=== PATIENT | female | born 1995 | race African-American/Black ===

== ENCOUNTER 2016-05-23 22:12 | Emergency (ER) | payer SELFPAY ==
[~2016-05-23 22:12] MED LIST: ACET500C5 PO; CIPR500T4 PO; CYCL-319 PO; FERR240T9 PO; HYDR-902 PO; IBUP-1542 PO; IBUP800T25 PO; PRENAT PO
== END 2016-05-23 22:15 | disposition left against medical advice (07) ==
LOC: E/R 22:12
DX: Z53.21 Procedure and treatment not carried out due to patient leaving prior to being seen by health care provider (principal)

== ENCOUNTER 2016-05-25 20:04 | Emergency (ER) | payer SELFPAY | END 2016-05-25 22:05 | disposition left against medical advice (07) | LOC: E/R 20:04 | DX: Z53.21 Procedure and treatment not carried out due to patient leaving prior to being seen by health care provider (principal) ==

== ENCOUNTER 2016-06-01 09:53 | Emergency (ER) | payer OTHER ==
[~2016-06-01] VITALS: Wt 106.0 kg
--- NOTE | 2016-06-01 10:59 | ERD ---
ER Documentation Chief Complaint Date/Time DATE: 06/01/16 TIME: 10:58 Chief Complaint lower abdominal pain for 1 week. no dysuria. no nausea no vomiting HPI 21-year-old female history of obesity comes emergency room with lower abdominal pain that started a week ago. She describes it to be localized in the suprapubic region, intermittent described as sharp and mild to moderate pain. So far she has not tried anything for pain. She denies any fevers or chills, nausea, vomiting or diarrhea. No associated vaginal bleeding. ROS All systems reviewed and are negative except as per history of present illness. Medications Home Meds Active Scripts Tramadol HCl (Tramadol HCl) 50 Mg Tablet, 50 MG PO Q4 Y for PAIN, #20 TAB Prov:GALDINO MABRY PA-C 06/01/16 Hydrocodone/Acetaminophen ([place] 10-325 Tablet) 1 Each Tablet, 1 TAB PO Q6H Y for PAIN, #10 TAB Prov:NICHOLAS LA PA-C 03/22/16 Ibuprofen* (Motrin*) 800 Mg Tab, 800 MG PO Q6, #30 TAB Prov:NICHOLAS LA PA-C 03/22/16 Acetaminophen* (Tylophen*) 500 Mg Capsule, 2 CAP PO Q8H Y for PAIN AND OR ELEVATED TEMP, #30 CAP Prov:NICHOLAS LA PA-C 03/22/16 Ciprofloxacin Hcl* (Ciprofloxacin Hcl*) 500 Mg Tablet, 500 MG PO BID for 3 Days , TAB Prov:GALDINO MABRY PA-C 01/26/15 Ibuprofen* (Motrin*) 600 Mg Tab, 600 MG PO Q6, #20 TAB Prov:GALDINO MABRY PA-C 01/26/15 Cyclobenzaprine Hcl* (Cyclobenzaprine Hcl*) 10 Mg Tablet, 10 MG PO TID for 7 Days, TAB Prov:ANEL HERRERA PA-C 11/10/14 Ibuprofen* (Motrin*) 600 Mg Tab, 600 MG PO Q6H Y for PAIN AND OR ELEVATED TEMP, #30 Prov:ANEL HERRERA PA-C 11/10/14 Ciprofloxacin Hcl* (Ciprofloxacin Hcl*) 500 Mg Tablet, 500 MG PO BID for 3 Days , TAB Prov:GALDINO MABRY PA-C 10/11/14 Reported Medications Ferrous Gluconate (Iron) 1 Tab Tablet, 1 TAB PO DAILY 06/20/14 Multivit/Min/Fol Ac/Iron/Pren* ( S*) 1 Tab Tab, 1 TAB PO DAILY, TAB 02/03/14 Allergies Allergies: Coded Allergies: No Known Allergy (Unverified , 03/22/16) PMhx/Soc Medical and Surgical Hx: pt denies Medical Hx, pt denies Surgical Hx History of Surgery: No Anesthesia Reaction: No Hx Neurological Disorder: No Hx Respiratory Disorders: No Hx Cardiac Disorders: No Hx Psychiatric Problems: No Hx Miscellaneous Medical Probl: Yes Hx Alcohol Use: No Hx Substance Use: No Hx Tobacco Use: No Smoking Status: Never smoker Physical Exam Vitals Vital Signs Date Time Temp Pulse Resp B/P Pulse Ox O2 Delivery O2 Flow Rate FiO2 06/01/16 10:03 97.8 74 20 136/74 99 Physical Exam General: Well-developed, well-nourished. The patient appears in no acute distress. HEENT: Head is normocephalic, atraumatic. No scleral icterus. Neck: Supple. Nontender. Lungs: Clear to auscultation. Normal air movement. Heart: Regular rate and rhythm. S1 and S2 are normal. No murmurs, gallops, or rubs. Abdomen: Soft, TTP in the suprapubic region nondistended. Bowel sounds are normoactive. Extremities: No clubbing or cyanosis. Normal pulses. Moving extremities x 4. No weakness. Neurologic: Alert and oriented 3. No focal deficits. Skin: Normal turgor. No rash or lesions. Results 24 hrs Laboratory Tests Test 06/01/16 11:06 Bedside Urine Blood Negative Bedside Urine Glucose (UA) Negative Bedside Urine Ketones (LAB) Negative Bedside Urine Leukocyte Esterase (L Negative Bedside Urine Nitrite (LAB) Negative Bedside Urine Protein (LAB) Negative Bedside Urine pH (LAB) 5.5 Current Medications Medications (Trade) Dose Ordered Sig/Guerline Route PRN Reason Start Time Stop Time Status Last Admin Dose Admin Ibuprofen (Motrin) 600 mg ONCE ONCE PO 06/01/16 11:00 06/01/16 11:01 DC 06/01/16 11:03 PROCEDURE: US Pelvis CLINICAL INDICATION: pelvic pain, h/o left sided cyst TECHNIQUE: Multiple sonographic images of the pelvis were obtained utilizing a transabdominal and endovaginal technique. The images were reviewed on a PACS workstation. COMPARISON: Pelvic ultrasound from 01/25/2015 LMP: 04/19/2016 FINDINGS: The uterus measures 9.8 x 3.9 x 5.0 cm. The endometrial echo complex measures 6 mm in thickness. No discrete lesion is seen. The right ovary measures 4.0 x 2.2 x 3.1 cm. The left ovary measures 4.5 x 2.1 x 3.1 cm. There is normal vascular flow in both ovaries. In the right adnexa, there is a large cystic lesion with thick septations running through it which measures up to 11 cm. No vascular flow is noted in the septations. No significant pelvic free fluid is identified. IMPRESSION: 11 cm cystic lesion with septations in the right adnexa, as above. An MRI of the pelvis without and with intravenous contrast is recommended for further evaluation. Otherwise, unremarkable pelvic ultrasound. RPTAT: EE Physician Lorin Date Time Electronically viewed and signed by Physician Lorin on 06/01/2016 12:31 Procedures/MDM 21-year-old female is obese comes to the ER with pelvic pain for the past 2 weeks on and off. She has a history of ovarian cyst and has been diagnosed with them several times that resolved, and has been seeing an DIETARY WORKER in the past. She comes in with 11 cm ovarian cyst, I reviewed the findings and my attending physician, agrees that this patient may appropriately be followed up with her DIETARY WORKER outpatient for likely surgical evaluation. At this time there are no clinical signs or symptoms of an ovarian torsion, she is hemodynamically stable and will be discharged home. Departure Diagnosis: Primary Impression: Ovarian cyst Condition: GALDINO Pinto PA-C Jun 01, 2016 10:59
[2016-06-01] MEDS ORDERED: IBUPROFEN 600 MG TAB PO ONE (11:00)
[2016-06-01 11:04] LABS: URINE BLOOD (Dip) POC Negative (NEGATIVE)
--- NOTE | 2016-06-01 12:31 | RADRPT ---
PROCEDURE: US Pelvis CLINICAL INDICATION: pelvic pain, h/o left sided cyst TECHNIQUE: Multiple sonographic images of the pelvis were obtained utilizing a transabdominal and endovaginal technique. The images were reviewed on a PACS workstation. COMPARISON: Pelvic ultrasound from 01/25/2015 LMP: 04/19/2016 FINDINGS: The uterus measures 9.8 x 3.9 x 5.0 cm. The endometrial echo complex measures 6 mm in thickness. N o discrete lesion is seen. The right ovary measures 4.0 x 2.2 x 3.1 cm. The left ovary measures 4.5 x 2.1 x 3.1 cm. There is no rmal vascular flow in both ovaries. In the right adnexa, there is a large cystic lesion with thick septations running through it which m easures up to 11 cm. No vascular flow is noted in the septations. No significant pelvic free fluid is identified. IMPRESSION: 11 cm cystic lesion with septations in the right adnexa, as above. An MRI of the pelvis without and with intravenous contrast is recommended for further evaluation. Otherwise, unremarkable pelvic ultrasound. RPTAT: EE Physician Lorin Date Time Electronically viewed and signed by Physician Lorin on 06/01/2016 12:31 /
[2016-06-01] MEDS ORDERED: TRAM50TA2 PO (12:41)
[2016-06-01 12:45] VITALS: BP 132/74; PULSE 66; RESP 18; TEMP 97.8
== END 2016-06-01 12:45 | disposition home or self-care (01) ==
LOC: FTE 09:53
DX: N83.209 Unspecified ovarian cyst, unspecified side (principal); R10.2 Pelvic and perineal pain
CPT/HCPCS: 76856; 81003; Z7502; Z7610

== ENCOUNTER 2016-12-08 05:40 | Inpatient (IN) | payer OTHER ==
[2016-12-07 16:08] VITALS: BMI 40.2
[2016-12-08] VITALS (25 sets, daily range): BP systolic 130–171; BP diastolic 53–92; PULSE 56–86; RESP 14–22; Ht 172.7 cm; Wt 130.6 kg
[~2016-12-08] VITALS: Ht 172.7 cm; Wt 130.6 kg
[~2016-12-08 05:40] MED LIST changes: +AZIT250T6 PO; +FERR325C PO; +FLUT50DI INH; +IRON PO; +TRAM50TA2 PO; +[UNRECOGNIZED DRUG - CODE] PO
--- NOTE | 2016-12-08 06:28 | PREOPHP ---
DATE OF ADMISSION: 12/08/2016 HISTORY OF PRESENT ILLNESS: This is a 21-year-old lady, 1, para 1. Her last normal menstrual period was a few days prior to admission. She was admitted for exploratory laparotomy, ovarian cystectomy, possible oophorectomy, and frozen section. The patient is known to have a possible left ovarian cyst measuring about a 11 cm. She is having on and off lower abdominal pain. She also bleeds very heavily with her period. Ultrasound showed a possible left ovarian cyst and the MRI showed a cystic mass on the midportion of the lower abdomen. PAST OB HISTORY: She is 1, para 1. Her 1st delivery was in 2014, normal delivery. She had menarche at the age of 10, having irregular periods. REVIEW OF SYSTEMS: CARDIOVASCULAR: No chest pain. LUNGS: No cough. GASTROINTESTINAL: No diarrhea, no vomiting. GENITOURINARY: No dysuria. PHYSICAL EXAMINATION: GENERAL APPEARANCE: Reveals a conscious, coherent lady, in no acute distress. VITAL SIGNS: Her blood pressure is 120/80, pulse rate 80 per minute, respirations 16 per minute. BREASTS: Within normal limits. HEART: Within normal limits. LUNGS: Within normal limits. ABDOMEN: Soft. No organomegaly and obese. PELVIC: Revealed the cervix to be firm and pelvic mass noted in the midportion of the abdomen about 11 cm. RECTAL: Rectal exam confirmed the pelvic findings. EXTREMITIES: No pedal edema. ADMITTING DIAGNOSIS: Possible left ovarian cyst. Rule out hydrosalpinx. Patient was planned to have the above procedure. Dictated By: Yoly Cantu MD /[email or web address] /Document#: [id number] ; copy to [facility]
[2016-12-08] MEDS ORDERED: PROPOFOL 20 ML ONE (07:33)
[2016-12-08] MEDS ORDERED: MIDAZOLAM 1 MG/ML 2 ML INJ ONE (07:33)
[2016-12-08] MEDS ORDERED: ROCURONIUM 50 MG INJ ONE (07:33)
[2016-12-08] MEDS ORDERED: METOCLOPRAMIDE 10 MG INJ ONE (07:33)
[2016-12-08] MEDS ORDERED: morphine SULFATE/PF (10 MG/10 ML) INJ ONE (07:34)
[2016-12-08] MEDS ORDERED: HYDROmorphONE 2 MG/ML SYG ONE (11:16)
[2016-12-08] MEDS ORDERED: METOCLOPRAMIDE 10 MG INJ IV PRN (11:30)
[2016-12-08] MEDS ORDERED: NALOXONE (0.4 MG/ML) INJ IV PRN (11:30)
[2016-12-08] MEDS ORDERED: HYDROmorphONE (0.2 MG/ML) 10ML SYG IV PRN ×2 (11:30)
[2016-12-08] MEDS ORDERED: ONDANSETRON 4 MG INJ IV PRN ×2 (11:30)
[2016-12-08] MEDS ORDERED: HYDROmorphONE 1 MG/ML SYG IV PRN ×3 (11:30)
[2016-12-08] MEDS ORDERED: LABETALOL HCL 20MG INJ IV PRN (11:30)
[2016-12-08] MEDS ORDERED: OXYCODONE/ACETAMINOPHEN (5/325) TAB PO PRN ×2 (11:30)
[2016-12-08] MEDS ORDERED: MEPERIDINE 25 MG INJ IV PRN (11:30)
[2016-12-08] MEDS ORDERED: DIPHENHYDRAMINE 50 MG INJ IV PRN ×2 (11:30)
[2016-12-08] MEDS ORDERED: KETOROLAC 30 MG INJ ONE (11:52)
[2016-12-08] MEDS ORDERED: ONDANSETRON 4 MG INJ ONE (12:11)
[2016-12-08] MEDS ORDERED: NEOSTIGMINE 3 MG/3 ML SYRINGE ONE (12:30)
[2016-12-08] MEDS ORDERED: GLYCOPYRROLATE 0.4 MG INJ ONE (12:30)
--- NOTE | 2016-12-08 12:55 | OPR ---
Date/Time of Note Date/Time of Note DATE: 12/08/16 TIME: 12:49 Operative Report Preoperative Diagnosis LEFT OVARIAN CYST PELVIC PAIN Postoperative Diagnosis LEFT PARATUBAL CYST RIGHT PARATUBAL CYST OBESITY PCO Operation/Procedure Performed EXPLORATORY LAPAROTOMY LEFT PARATUBAL CYST DRAINAGE OF LEFT PARATUBAL CYST DRAINAGE OF RIGHT PARATUBAL CYST DRILLING OF BOTH OVARIES Surgeon: STACI HERNANDES MD Anesthesia Type: general, MAC, spinal (AND GENERAL), other Estimated Blood Loss: 50 - 100 ml's Transfusion Required: no Specimens LEFT PARATUBAL CYST Grafts/Implants: none Complications: no STACI HERNANDES MD Dec 08, 2016 12:55
[2016-12-08] MEDS: HYDROmorphONE (0.2 MG/ML) 10ML SYG IV PRN ×2 (13:09→13:20)
[2016-12-08] MEDS: HYDROmorphONE 0.2 MG/ML PCA IV SCH (13:19)
[2016-12-08] MEDS ORDERED: ONDANSETRON 4 MG TAB PO PRN (13:30)
[2016-12-08] MEDS: LACTATED RINGER'S 1,000 ML IV SCH (18:17)
[2016-12-09] MEDS: LACTATED RINGER'S 1,000 ML IV SCH ×4 (00:33→22:21)
[2016-12-09 03:04] VITALS: BP 129/66; RESP 18
[2016-12-09] MEDS: HYDROmorphONE 0.2 MG/ML PCA IV SCH (04:58)
[2016-12-09 05:38] LABS: ABNORMAL IP MESSAGE 1; BASOPHILS % 0.2 % (0.0-2.0); EOSINOPHILS # 0.1 10^3/ul (0.0-0.5); EOSINOPHILS % 0.8 % (0.0-7.0); HEMATOCRIT 31.3 % (37.0-47.0); HEMOGLOBIN 8.6 g/dl (12.0-16.0); LYMPHOCYTES # 2.5 10^3/ul (0.8-2.9); LYMPHOCYTES % 24.4 % (15.0-51.0); MEAN CORPUSCULAR HEMOGLOBIN 18.9 pg (29.0-33.0); MEAN CORPUSCULAR HGB CONC 27.5 g/dl (32.0-37.0); MEAN CORPUSCULAR VOLUME 68.8 fl (82.0-101.0); MONOCYTE # 0.7 10^3/ul (0.3-0.9); MONOCYTES % 7.3 % (0.0-11.0); NEUTROPHILS % 66.9 % (39.0-77.0); PLATELET COUNT 299 10^3/UL (140-415); RED BLOOD COUNT 4.55 10^6/ul (4.20-5.40); RED CELL DISTRIBUTION WIDTH 19.1 % (11.5-14.5); WHITE BLOOD COUNT 10.2 10^3/ul (4.8-10.8)
[2016-12-09 05:46] LABS: ALBUMIN 3.6 g/dl (3.3-4.9); ALBUMIN/GLOBULIN RATIO 1.24; BILIRUBIN,INDIRECT 0.3 mg/dl (0-1.1); BILIRUBIN,TOTAL 0.3 mg/dl (0.2-1.3); CREATININE 0.61 mg/dl (0.44-1.00); POTASSIUM 4.5 mmol/L (3.5-5.1); TOTAL PROTEIN 6.5 g/dl (6.1-8.1)
[2016-12-09] MEDS ORDERED: BISACODYL 10 MG SUPP PR ONE ×3 (06:00→23:00)
[2016-12-09] MEDS: MAGNESIUM HYDROXIDE 30ML CUP PO SCH ×2 (06:00→17:20)
[2016-12-09 06:03] LABS: POSITIVE DIFF @See below
--- NOTE | 2016-12-09 06:32 | OPR ---
DATE OF OPERATION: 12/08/2016 PREOPERATIVE DIAGNOSES: 1. Left paratubal cyst. 2. Chronic pelvic pain. 3. Obesity. POSTOPERATIVE DIAGNOSES: 1. Left paratubal cyst. 2. Chronic pelvic pain. 3. Obesity. 4. Right paratubal cyst. 5. Polycystic ovaries. SURGEON: Dr. Cantu. VP [employer]: Larissa perez. ANESTHESIA: General. OPERATION PERFORMED: Exploratory laparotomy, left paratubal cystectomy, drainage of the right paratubal cyst and drilling of both ovaries. OPERATIVE PROCEDURE: Under general anesthesia, the patient was prepped and draped in the usual fashion for abdominal surgery. After checking for the effect of the anesthesia, a Pfannenstiel incision, 10 cm skin incision was performed. The incision was carried from the skin up to the fascia. Upon opening the skin to the fascia, small blood vessels were noted to be oozing and these were all cauterized. The fascia was opened transversely followed by splitting the muscles vertical and the peritoneum vertically. Upon opening the abdominal cavity, the left tube and ovary were pulled out from the pelvic cavity. Prior to that, the muscles on both sides of the lower abdomen were cut transversely. Then the left tube and the left ovary were pulled out. The left tube was measuring about 12 x 12 cm and there was noted to be a paratubal cyst. An incision was performed on the serosa of the cyst and the cyst was enucleated from the paratubal ligament by sharp and blunt dissection. It was delivered intact and the remaining serosa of the tube was sutured with continuous sutures with 2-0 chromic. Bleeders were checked and there was no bleeding noted. The tube was noted to be intact after suturing of the serosa. The left ovary was noted to have tiny small follicles and drilling of the left ovary was done and then the same thing was noted on the right side. A 3 x 3 cm paratubal cyst was noted and this was drained. The right tube was healthy looking. The ovary also had polycystic ovaries, so drilling of the right ovary was done. Bleeders were checked and there was no bleeding noted. The uterus was noted to be of normal size. Irrigation with about 200 cc of normal saline was done. After correct sponge count, needle count, and instrument count was confirmed by the field sampling technician and manager fine, the abdomen was closed by closing the peritoneum and the muscles first on the right side and followed by closing the peritoneum and the muscle on the left side. Then the peritoneum was closed in the usual fashion using 0 Vicryl for the peritoneum, 0 Vicryl for the muscles. For the fascia 0 Vicryl continuous stitch was used followed by a few figure-of- eight sutures. For the subcutaneous tissue, it was closed with 3- 0 Vicryl in 2 layers and the skin was closed with 3-0 Vicryl subcuticular suture. The patient tolerated the procedure well. ESTIMATED BLOOD LOSS: About 100 cc. Vital signs were stable during and after the procedure. Dictated By: Yoly Cantu MD /[email or web address] /Document#: [id number] CC: Yoly Cantu MD;*EndCC*
[2016-12-09 08:00] VITALS: BP 131/71; RESP 18
--- NOTE | 2016-12-09 13:14 | PN ---
Date/Time of Note Date/Time of Note DATE: 12/09/16 TIME: 13:09 Assessment/Plan VTE Prophylaxis VTE Prophylaxis Intervention: ambulation Lines/Catheters IV Catheter Type (from Nrsg): Peripheral IV Urinary Cath still in place: Yes Subjective 24 Hr Interval Summary Free Text/Dictation Anesthesia note: A 21 year female s/p exp lap paratubal cystectomy under GA, Spinal pod # 1 is doing fine, pain is controlled, no headahe, N/V, itching, back apin, no deficit. care per surgery Exam/Review of Systems Vital Signs Vitals Vital Signs Date Time Temp Pulse Resp B/P Pulse Ox O2 Delivery O2 Flow Rate FiO2 12/09/16 08:00 98.3 92 18 131/71 97 12/08/16 17:45 Room Air 12/08/16 13:19 10.0 Intake and Output 12/08/16 12/08/16 12/09/16 15:00 23:00 07:00 Intake Total 1500 ml 1140 ml Output Total 250 ml 400 ml 1100 ml Balance 1250 ml -400 ml 40 ml Results Result Diagram: 12/09/16 0438 12/09/16 0438 Results 24 hrs Laboratory Tests Test 12/09/16 02:20 12/09/16 04:38 Bedside Glucose 104 White Blood Count 10.2 # Red Blood Count 4.55 Hemoglobin 8.6 L Hematocrit 31.3 L Mean Corpuscular Volume 68.8 L Mean Corpuscular Hemoglobin 18.9 L Mean Corpuscular Hemoglobin Concent 27.5 L Red Cell Distribution Width 19.1 H Platelet Count 299 Mean Platelet Volume Neutrophils % 66.9 Lymphocytes % 24.4 Monocytes % 7.3 Eosinophils % 0.8 Basophils % 0.2 Nucleated Red Blood Cells % 0.0 Neutrophils # (Manual) 6.8 Lymphocytes # 2.5 Monocytes # 0.7 Eosinophils # 0.1 Basophils # 0.0 Nucleated Red Blood Cells # 0.0 Sodium Level 136 Potassium Level 4.5 Chloride Level 100 Carbon Dioxide Level 28 Anion Gap 13 Blood Urea Nitrogen 6 L Creatinine 0.61 Glucose Level 99 Calcium Level 9.0 Total Bilirubin 0.3 Direct Bilirubin 0.00 Indirect Bilirubin 0.3 Aspartate Amino Transf (AST/SGOT) 25 Alanine Aminotransferase (ALT/SGPT) 41 Alkaline Phosphatase 99 Total Protein 6.5 Albumin 3.6 Globulin 2.90 Albumin/Globulin Ratio 1.24 Medications Medications Current Medications Naloxone HCl (Narcan) 0.2 mg PRN PRN IV DECREASED REPIRATORY RATE; Start at 11:30 Hydromorphone HCl (Dilaudid MANA[employer]) 0.2 mg Q4PCA IV Last administered on t 04:58; Admin Dose 0.2 MG; Start 12/08/16 at 11:30 Oxycodone/ Acetaminophen (Percocet (5/ 325)) 1 tab Q4H PRN PO PAIN LEVEL 1-5; Start 12/08/16 at 11:30 Oxycodone/ Acetaminophen (Percocet (5/ 325)) 2 tab Q4H PRN PO PAIN LEVEL 6-10; Start 12/08/16 at 11:30 Hydromorphone HCl (Dilaudid) 1 mg Q3 PRN IV BREAKTHROUGH PAIN; Start 12/08/16 at 11:30 Hydromorphone HCl (Dilaudid) 0.2 mg Q4H PRN IV PAIN LEVEL 1-5; Start 12/08/16 at 11:30 Hydromorphone HCl (Dilaudid) 0.4 mg Q4H PRN IV PAIN LEVEL 6-10; Start 12/08/16 at 11:30 Ketorolac Tromethamine (Toradol) 30 mg Q6H PRN IV PAIN UNRELIEVED BY IV NARCOTIC; Start 12/08/16 at 11:30; Stop 12/11/16 at 11:29 Ondansetron HCl (Zofran Inj) 4 mg Q6H PRN IV NAUSEA AND/OR VOMITING; Start at 11:30 Diphenhydramine HCl (Benadryl) 25 mg Q6H PRN IV ITCHING; Start 12/08/16 at 11: 30 Bisacodyl (Dulcolax Supp) 10 mg ONCE ONCE MN ; Start 12/09/16 at 17:00; Stop at 17:01 Magnesium Hydroxide (Milk Of Mag) 30 ml BID@06,17 PO ; Start 12/09/16 at 06:00 Ondansetron HCl (Zofran Tab) 4 mg Q6H PRN PO NAUSEA AND/OR VOMITING; Start at 13:30 Oxycodone/ Acetaminophen (Percocet (5/ 325)) 1 tab Q3H PRN PO PAIN LEVEL 1-5; Start 12/09/16 at 13:30 Oxycodone/ Acetaminophen 2 tab 2 tab Q3H PRN PO SEVERE PAIN LEVEL 7-10; Start 12/09/16 at 13:30 Lactated Ringer's (Lr) 1,000 ml @ 100 mls/hr Q10H IV Last administered on 12/09t 10:50; Admin Dose 100 MLS/HR; Start 12/08/16 at 17:00 SUSAN KELLOGG MD Dec 09, 2016 13:14
[2016-12-09] MEDS ORDERED: OXYCODONE/ACETAMINOPHEN (5/325) TAB PO PRN ×2 (13:30)
[2016-12-09 14:00] VITALS: BP 126/68; RESP 18
[2016-12-09] MEDS: OXYCODONE/ACETAMINOPHEN (5/325) TAB PO PRN (20:01)
[2016-12-09 21:01] VITALS: BP 114/58; RESP 20
[2016-12-09] MEDS ORDERED: MAGNESIUM HYDROXIDE 30ML CUP PO ONE (23:00)
[2016-12-10] MEDS: OXYCODONE/ACETAMINOPHEN (5/325) TAB PO PRN ×4 (01:02→16:47)
[2016-12-10 03:14] VITALS: BP 134/65; RESP 22
[2016-12-10 05:23] LABS: ABNORMAL IP MESSAGE 1; BASOPHILS % 0.3 % (0.0-2.0); EOSINOPHILS # 0.1 10^3/ul (0.0-0.5); EOSINOPHILS % 0.9 % (0.0-7.0); HEMATOCRIT 32.6 % (37.0-47.0); HEMOGLOBIN 9.1 g/dl (12.0-16.0); LYMPHOCYTES # 2.8 10^3/ul (0.8-2.9); LYMPHOCYTES % 24.7 % (15.0-51.0); MEAN CORPUSCULAR HEMOGLOBIN 19.4 pg (29.0-33.0); MEAN CORPUSCULAR HGB CONC 27.9 g/dl (32.0-37.0); MEAN CORPUSCULAR VOLUME 69.4 fl (82.0-101.0); MONOCYTES % 9.1 % (0.0-11.0); NEUTROPHILS % 64.6 % (39.0-77.0); PLATELET COUNT 336 10^3/UL (140-415); WHITE BLOOD COUNT 11.4 10^3/ul (4.8-10.8)
[2016-12-10 05:52] LABS: POSITIVE DIFF @See below
[2016-12-10] MEDS ORDERED: BISACODYL 10 MG SUPP PR ONE ×2 (06:00→09:30)
[2016-12-10] MEDS: MAGNESIUM HYDROXIDE 30ML CUP PO SCH ×2 (06:21→16:48)
[2016-12-10] MEDS: LACTATED RINGER'S 1,000 ML IV SCH ×3 (07:36→19:00)
[2016-12-10 08:23] VITALS: BP 132/79; RESP 20
[2016-12-10] MEDS ORDERED: BISACODYL (EC) 5 MG TAB PO ONE (09:30)
[2016-12-10] MEDS ORDERED: GUAIFENESIN/DM 5ML CUP PO PRN (09:30)
[2016-12-10 15:11] VITALS: BP 121/74; RESP 18
[2016-12-10 20:44] VITALS: BP 133/73; RESP 20
[2016-12-10] MEDS: KETOROLAC 30 MG INJ IV PRN (22:14)
[2016-12-11 02:47] VITALS: BP 128/69; RESP 20
[2016-12-11] MEDS: LACTATED RINGER'S 1,000 ML IV SCH ×2 (05:00→15:00)
[2016-12-11] MEDS: MAGNESIUM HYDROXIDE 30ML CUP PO SCH ×2 (05:17→16:23)
[2016-12-11] MEDS: KETOROLAC 30 MG INJ IV PRN (05:20)
[2016-12-11 07:47] VITALS: BP 112/77; RESP 18
[2016-12-11] MEDS: OXYCODONE/ACETAMINOPHEN (5/325) TAB PO PRN ×4 (11:11→23:35)
[2016-12-11 14:00] VITALS: BP 120/80; RESP 18
[2016-12-11 19:46] VITALS: BP 128/68; RESP 22
[2016-12-12] MEDS: LACTATED RINGER'S 1,000 ML IV SCH ×3 (01:00→21:00)
[2016-12-12 02:38] VITALS: BP 109/59; RESP 22
[2016-12-12] MEDS: MAGNESIUM HYDROXIDE 30ML CUP PO SCH ×2 (06:00→18:43)
[2016-12-12] MEDS: OXYCODONE/ACETAMINOPHEN (5/325) TAB PO PRN ×2 (06:15→20:28)
[2016-12-12 07:56] VITALS: BP 134/81; RESP 18
[2016-12-12 14:00] VITALS: BP 118/68; RESP 19
[2016-12-12 20:00] VITALS: BP 134/82; RESP 20
[2016-12-13 01:55] VITALS: BP 123/58; RESP 19
[2016-12-13] MEDS: MAGNESIUM HYDROXIDE 30ML CUP PO SCH ×2 (06:08→17:00)
[2016-12-13] MEDS: OXYCODONE/ACETAMINOPHEN (5/325) TAB PO PRN ×2 (06:08→14:16)
[2016-12-13] MEDS: LACTATED RINGER'S 1,000 ML IV SCH ×2 (07:00→17:00)
[2016-12-13 08:27] VITALS: BP 114/64; RESP 16
[2016-12-13 15:36] VITALS: BP 135/85; RESP 17
[2016-12-13 17:42] VITALS: BP 126/84; PULSE 67; RESP 16
[2016-12-13 20:15] VITALS: BP 139/91; RESP 16
--- NOTE | 2016-12-29 06:14 | DS ---
DATE OF ADMISSION: 12/08/2016 DATE OF DISCHARGE: 12/13/2016 REASON FOR ADMISSION: This is a 21-year-old lady, 1. Her last normal menstrual period was a few days prior to admission. She was admitted for exploratory laparotomy, ovarian cystectomy, possible oophorectomy, frozen section. HISTORY OF PRESENT ILLNESS: See dictated history and physical. PHYSICAL EXAMINATION: See dictated history and physical. ADMITTING DIAGNOSES: 1. Possible left ovarian cyst. 2. Possible hydrosalphinx. PROCEDURE: Patient underwent an exploratory laparotomy, left paratubal cystectomy, right paratubal cyst and draining of both ovaries. POSTOPERATIVE DIAGNOSES: 1. Left paratubal cyst. 2. Chronic pelvic pain. 3. Obesity. 4. Right paratubal cyst. 5. Polycystic ovaries. HOSPITAL COURSE: She tolerated the procedure well. She did a good postoperative course. The diet was advanced from liquid to general diet. She was discharged home in good stable condition on general diet, and the activity was restricted. She was given prescription for pain. She was told to come back to the clinic in 2 weeks. She was counseled. She was instructed. She was discharged home in good stable condition. FINAL DIAGNOSIS: Benign serous cystadenoma of the ovary, left. Dictated By: Yoly Cantu MD /humza/lj /Document#: [id number] LISA
== END 2016-12-13 21:00 | disposition home or self-care (01) | DRG 742 ==
LOC: REC 05:40 → EDSTATUS 07:30 → MS1 14:03
PROVIDERS: ADMIT Obstetrics & Gynecology; ATTEND Obstetrics & Gynecology
PROC: 0UB70ZZ Excision of Bilateral Fallopian Tubes, Open Approach (ICD-10-PCS; 2016-12-08)
PROC: 0WJJ0ZZ Inspection of Pelvic Cavity, Open Approach (ICD-10-PCS; 2016-12-08)
PROC: 0UB20ZZ Excision of Bilateral Ovaries, Open Approach (ICD-10-PCS; principal; 2016-12-08 07:30)
DX: N83.8 Other noninflammatory disorders of ovary, fallopian tube and broad ligament (principal); Z68.41 Body mass index [BMI] 40.0-44.9, adult; N83.201 Unspecified ovarian cyst, right side; N83.202 Unspecified ovarian cyst, left side; E66.01 Morbid (severe) obesity due to excess calories; R10.2 Pelvic and perineal pain
CPT/HCPCS: 80053; 82962; 84702; 84703; 85025; 86850; 86900; 86901; 87086; 88304; J1170; J1885; J2175; J2250; J2274; J2405; J2710; J2765; J7120

== ENCOUNTER 2016-12-20 16:08 | Emergency (ER) | payer OTHER ==
[~2016-12-20] VITALS: Ht 152.4 cm; Wt 120.5 kg
[~2016-12-20 16:08] MED LIST changes: -ACET500C5 PO; -AZIT250T6 PO; -CIPR500T4 PO; -CYCL-319 PO; -FERR325C PO; -FLUT50DI INH; -HYDR-902 PO; -IBUP-1542 PO; -IBUP800T25 PO; -IRON PO; -PRENAT PO; -TRAM50TA2 PO; -[UNRECOGNIZED DRUG - CODE] PO
[2016-12-20 16:13] VITALS: Ht 152.4 cm; Wt 120.5 kg
[2016-12-20] MEDS ORDERED: ONDANSETRON 4 MG INJ IV STA (17:22)
[2016-12-20] MEDS ORDERED: morphine 4 MG/ML VIAL IV STA (17:22)
[2016-12-20] MEDS ORDERED: SOD CHLORIDE 0.9% 1,000 ML IV STA (17:22)
[2016-12-20] MEDS ORDERED: KETOROLAC 30 MG INJ IV STA (17:22)
[2016-12-20 17:48] LABS: ABNORMAL IP MESSAGE 1; BASOPHIL # 0.1 10^3/ul (0.0-0.1); BASOPHILS % 0.5 % (0.0-2.0); EOSINOPHILS # 0.3 10^3/ul (0.0-0.5); EOSINOPHILS % 3.5 % (0.0-7.0); HEMATOCRIT 33.7 % (37.0-47.0); HEMOGLOBIN 9.5 g/dl (12.0-16.0); LYMPHOCYTES % 32.5 % (15.0-51.0); MEAN CORPUSCULAR HEMOGLOBIN 19.6 pg (29.0-33.0); MEAN CORPUSCULAR HGB CONC 28.2 g/dl (32.0-37.0); MEAN CORPUSCULAR VOLUME 69.5 fl (82.0-101.0); MONOCYTE # 0.7 10^3/ul (0.3-0.9); MONOCYTES % 7.8 % (0.0-11.0); NEUTROPHILS % 55.3 % (39.0-77.0); PLATELET COUNT 545 10^3/UL (140-415); RED BLOOD COUNT 4.85 10^6/ul (4.20-5.40); RED CELL DISTRIBUTION WIDTH 18.5 % (11.5-14.5); WHITE BLOOD COUNT 9.3 10^3/ul (4.8-10.8)
[2016-12-20 17:57] LABS: MEAN PLATELET VOLUME 11.6 fl (7.4-10.4); POSITIVE DIFF @See below
[2016-12-20 17:58] LABS: ADD UMIC YES; UR ASCORBIC ACID 40 mg/dL (NEGATIVE); UR BACTERIA FEW /HPF (NONE SEEN); UR BILIRUBIN (Dip) NEGATIVE (NEGATIVE); UR BLOOD (Dip) NEGATIVE (NEGATIVE); UR CLARITY SLIGHTLY CLOUDY (CLEAR); UR COLOR YELLOW (YELLOW); UR GLUCOSE (Dip) NEGATIVE (NEGATIVE); UR KETONES (Dip) NEGATIVE (NEGATIVE); UR LEUKOCYTE ESTERASE (Dip) 1+ Leu/ul (NEGATIVE); UR MUCUS FEW /HPF (NONE SEEN); UR NITRITE (Dip) NEGATIVE (NEGATIVE); UR RBC 1 /HPF (0-5); UR SPECIFIC GRAVITY (Dip) 1.028 (1.003-1.030); UR SQUAMOUS EPITHELIAL CELL FEW /HPF (FEW); UR TOTAL PROTEIN (Dip) NEGATIVE (NEGATIVE); UR UROBILINOGEN (Dip) NEGATIVE (NEGATIVE)
[2016-12-20 18:03] LABS: INR 1.02; PROTIME 13.4 Sec (12.2-14.2)
[2016-12-20 18:04] LABS: PARTIAL THROMBOPLASTIN TIME 31.8 Sec (25.0-35.0)
[2016-12-20 18:06] LABS: ALBUMIN/GLOBULIN RATIO 0.95
[2016-12-20 18:09] LABS: CALCIUM 9.2 mg/dl (8.4-10.2); CREATININE 0.68 mg/dl (0.44-1.00); POTASSIUM 3.8 mmol/L (3.5-5.1)
[2016-12-20 18:10] LABS: ALBUMIN 4.3 g/dl (3.3-4.9); TOTAL PROTEIN 8.8 g/dl (6.1-8.1)
--- NOTE | 2016-12-20 20:23 | RADRPT ---
PROCEDURE: CT abdomen and pelvis without intravenous contrast. CLINICAL INDICATION: Pain. TECHNIQUE: CT of the abdomen/pelvis was performed utilizing axial images with reconstructions in s agittal and coronal planes. The administered radiation dose is CTDI 23 mGy, DLP 1568 mGy-cm. COMPARISON: No pertinent prior examinations were submitted for comparison. FINDINGS: Visualized Chest: The visualized lung bases are clear. Abdomen: The pancreas, gallbladder,and adrenal glands are unremarkable. The liver is diffusely decreased in attenuation, compatible with hepatic steatosis. There is moderate splenomegaly. The kidneys are without hydronephrosis. No definite urinary calculi are seen. There is no evidence of bowel obstruction. The appendix is normal. No intra-abdominal free air is seen. There is no evidence of intra-abdominal adenopathy or free fluid. Pelvis: A recent low anterior abdominal resection is noted. A small collection of gas and fluid are noted w ithin the rectus sheath at the site of the incision. This measures 7.3 cm in transverse dimension a nd up to 3 cm in thickness. There is some mild surrounding inflammatory changes. There is no evidence of pelvic adenopathy. The uterus and ovaries are without enlargement. The uri nary bladder is unremarkable. There is no pelvic free fluid. Osseous structures: Unremarkable. IMPRESSION: Status post recent low anterior abdominal resection with a small collection of gas and fluid within the rectus sheath at the incision. There may be infection within the fluid. The amount of fluid is likely greater than expected given the healed appearance of the overlying subcutaneous fat but may b e within normal limits with the surgery was actually more recent. Hepatic steatosis. Moderate splenomegaly. RPTAT: HIKT .Timmy Mcgowan MD, Date Time Electronically viewed and signed by .Timmy Mcgowan MD, MD on 12/20/2016 20:22 .T/
[2016-12-20] MEDS ORDERED: FER325 PO (20:41)
[2016-12-20] MEDS ORDERED: CEPH-443 PO (20:41)
[2016-12-20] MEDS ORDERED: DOCU-144 PO (20:42)
[2016-12-20 21:00] VITALS: BP 118/79; PULSE 73; RESP 18; TEMP 98.2
--- NOTE | 2016-12-20 22:07 | ERD ---
ER Documentation Chief Complaint Date/Time DATE: 12/20/16 TIME: 22:01 Chief Complaint HAD CYST REMOVED 12/08 TODAY HAS PAIN RIGTH SIDED AP HPI This patient is a 21-year-old female presenting to the emergency department with complaints of right lower quadrant pain for 1 day. Pain is nonradiating but worsening. Symptoms are constant and she rates an 8 out of 10 on the pain scale. Worse with standing. She last took pain medications of unknown name that she had left over from her recent surgical procedure. Associated symptoms include chills. She had an ovarian left-sided cyst removed approximately 2 weeks ago. She denies other symptoms at this time. ROS All systems reviewed and are negative except as per history of present illness. Medications Home Meds Active Scripts Docusate Sodium* (Colace*) 100 Mg Capsule, 100 MG PO TID, #30 CAP Prov:LB CHRISTOPHER PA-C 12/20/16 Ferrous Sulfate* (Ferrous Sulfate*) 325 Mg Tabec, 325 MG PO TID, #60 TAB Prov:LB CHRISTOPHER PA-C 12/20/16 Cephalexin* (Keflex*) 500 Mg Capsule, 500 MG PO TID for 7 Days, #21 CAP Prov:LB CHRISTOPHER PA-C 12/20/16 Reported Medications Ferrous Gluconate (Iron) 1 Tab Tablet, 1 TAB PO DAILY 06/20/14 Allergies Allergies: Coded Allergies: No Known Allergy (Unverified , 12/08/16) PMhx/Soc History of Surgery: Yes (12/08: L ovarian cyst removal) Anesthesia Reaction: No Hx Neurological Disorder: No Hx Respiratory Disorders: No Hx Cardiac Disorders: No Hx Psychiatric Problems: No Hx Miscellaneous Medical Probl: No Hx Alcohol Use: No Hx Substance Use: No Hx Tobacco Use: No Smoking Status: Never smoker Physical Exam Vitals Vital Signs Date Time Temp Pulse Resp B/P Pulse Ox O2 Delivery O2 Flow Rate FiO2 12/20/16 21:00 98.2 73 18 118/79 100 Room Air 12/20/16 16:13 99.0 90 18 129/78 99 Physical Exam Const: Morbidly obese female in no acute distress. Head: Atraumatic Eyes: Normal Conjunctiva ENT: Normal External Ears, Nose and Mouth. Neck: Full range of motion..~ No meningismus. Resp: Clear to auscultation bilaterally Cardio: Regular rate and rhythm, no murmurs Abd: obese, Soft, Mild tenderness palpation of the right lower quadrant but no rebound tenderness or guarding, non distended. Normal bowel sounds Skin: abdominal incision site just inferior to umbilicus healing well without discharge. Back: No midline or flank tenderness Ext: No cyanosis, or edema Neur: Awake and alert Psych: Normal Mood and Affect Result Diagram: 12/20/16 1730 12/20/16 1730 Results 24 hrs Laboratory Tests Test 12/20/16 17:30 White Blood Count 9.310^3/ul Red Blood Count 4.8510^6/ul Hemoglobin 9.5g/dl Hematocrit 33.7% Mean Corpuscular Volume 69.5fl Mean Corpuscular Hemoglobin 19.6pg Mean Corpuscular Hemoglobin Concent 28.2g/dl Red Cell Distribution Width 18.5% Platelet Count 81667^3/UL Mean Platelet Volume 11.6fl Neutrophils % 55.3% Lymphocytes % 32.5% Monocytes % 7.8% Eosinophils % 3.5% Basophils % 0.5% Nucleated Red Blood Cells % 0.0/100WBC Neutrophils # (Manual) 5.110^3/ul Lymphocytes # 3.010^3/ul Monocytes # 0.710^3/ul Eosinophils # 0.310^3/ul Basophils # 0.110^3/ul Nucleated Red Blood Cells # 0.010^3/ul Prothrombin Time 13.4Sec Prothrombin Time Ratio 1.0 INR International Normalized Ratio 1.02 Activated Partial Thromboplast Time 31.8Sec Urine Color YELLOW Urine Clarity SLIGHTLY CLOUDY Urine pH 6.0 Urine Specific [place] 1.028 Urine Ketones NEGATIVEmg/dL Urine Nitrite NEGATIVEmg/dL Urine Bilirubin NEGATIVEmg/dL Urine Urobilinogen NEGATIVEmg/dL Urine Leukocyte Esterase 1+[place]/ul Urine Microscopic RBC 1/HPF Urine Microscopic WBC 4/HPF Urine Squamous Epithelial Cells FEW/HPF Urine Bacteria FEW/HPF Urine Mucus FEW/HPF Urine Hemoglobin NEGATIVEmg/dL Urine Glucose NEGATIVEmg/dL Urine Total Protein NEGATIVEmg/dl Sodium Level 147mmol/L Potassium Level 3.8mmol/L Chloride Level 102mmol/L Carbon Dioxide Level 28mmol/L Anion Gap 21 Blood Urea Nitrogen 9mg/dl Creatinine 0.68mg/dl Glucose Level 90mg/dl Calcium Level 9.2mg/dl Total Bilirubin 0.0mg/dl Direct Bilirubin 0.00mg/dl Indirect Bilirubin 0.0mg/dl Aspartate Amino Transf (AST/SGOT) 23IU/L Alanine Aminotransferase (ALT/SGPT) 40IU/L Alkaline Phosphatase 102IU/L Total Protein 8.8g/dl Albumin 4.3g/dl Globulin 4.50g/dl Albumin/Globulin Ratio 0.95 Lipase 261U/L Current Medications Medications (Trade) Dose Ordered Sig/Guerline Route PRN Reason Start Time Stop Time Status Last Admin Dose Admin Sodium Chloride (NS) 1,000 ml @ 1,000 mls/hr Q1H STAT IV 12/20/16 17:22 12/20/16 18:21 DC 12/20/16 17:44 Morphine Sulfate (morphine) 4 mg ONCE STAT IV 12/20/16 17:22 12/20/16 17:24 DC 12/20/16 17:43 Ondansetron HCl (Zofran Inj) 4 mg ONCE STAT IV 12/20/16 17:22 12/20/16 17:24 DC 12/20/16 17:43 Ketorolac Tromethamine (Toradol) 30 mg ONCE STAT IV 12/20/16 17:22 12/20/16 17:24 DC 12/20/16 17:43 Procedures/MDM EMERGENCY DEPARTMENT COURSE / MEDICAL DECISION MAKING: This is a 21-year-old female who comes to the emergency room secondary to complaints of right lower quadrant pain. The patient was given IV morphine and IV Zofran and IV fluids in the department. On re-evaluation, the patient was feeling improved. Lab results reviewed. CBC: Anemia at 9.5, but no leukocytosis. Chemistry: Sodium slightly elevated at 147, but not significant no other significant acute abnormalities. UA: 1+ leukocyte concerning for early mild urinary tract infection. Lipase: Within normal limits at 261. Radiology: PROCEDURE: CT abdomen and pelvis without intravenous contrast. CLINICAL INDICATION: Pain. TECHNIQUE: CT of the abdomen/pelvis was performed utilizing axial images with reconstructions in sagittal and coronal planes. The administered radiation dose is CTDI 23 mGy, DLP 1568 mGy-cm. COMPARISON: No pertinent prior examinations were submitted for comparison. FINDINGS: Visualized Chest: The visualized lung bases are clear. Abdomen: The pancreas, gallbladder,and adrenal glands are unremarkable. The liver is diffusely decreased in attenuation, compatible with hepatic steatosis. There is moderate splenomegaly. The kidneys are without hydronephrosis. No definite urinary calculi are seen. There is no evidence of bowel obstruction. The appendix is normal. No intra- abdominal free air is seen. There is no evidence of intra-abdominal adenopathy or free fluid. Pelvis: A recent low anterior abdominal resection is noted. A small collection of gas and fluid are noted within the rectus sheath at the site of the incision. This measures 7.3 cm in transverse dimension and up to 3 cm in thickness. There is some mild surrounding inflammatory changes. There is no evidence of pelvic adenopathy. The uterus and ovaries are without enlargement. The urinary bladder is unremarkable. There is no pelvic free fluid. Osseous structures: Unremarkable. IMPRESSION: Status post recent low anterior abdominal resection with a small collection of gas and fluid within the rectus sheath at the incision. There may be infection within the fluid. The amount of fluid is likely greater than expected given the healed appearance of the overlying subcutaneous fat but may be within normal limits with the surgery was actually more recent. Hepatic steatosis. Moderate splenomegaly. RPTAT: HIKT .Timmy Mcgowan MD, MD Date Time Electronically viewed and signed by .Timmy Mcgowan MD, MD on 12/20/2016 20:22 The primary diagnosis is urinary tract infection. Secondary diagnosis is abdominal pain of unclear etiology I have low suspicion for appendicitis, bowel obstruction, mesenteric ischemia, sepsis, or other emergent conditions at this time. Discharge: I have discussed the lab results and diagnostic findings with the patient and answered any questions or concerns. The patient was discharged with a prescription for Keflex, Colace, and ferrous sulfate. The patient was advised to followup with their PMD in 1-2 days and to return to the Emergency Department if there are any new or worsening symptoms. The patient understood and agreed with the diagnosis, treatment and plan. The patient is stable for discharge at this time. Departure Diagnosis: Primary Impression: Urinary tract infection Urinary tract infection type: acute cystitis Hematuria presence: without hematuria Qualified Code: N30.00 - Acute cystitis without hematuria Additional Impressions: Anemia Anemia type: unspecified type Qualified Code: D64.9 - Anemia, unspecified type Abdominal pain Abdominal location: unspecified location Qualified Code: R10.9 - Abdominal pain, unspecified abdominal location Condition: Fair Patient Instructions: Abdominal Pain, Understanding Urinary Tract Infections ( UTIs), Anemia, Iron Deficiency (Adult) Additional Instructions: Follow up with your PCP within the next 1-3 days for a repeat evaluation. If you require a referral to a specialist, your Primary Care Provider may be able to provide this for you. In most patient cases, a referral is not required. If you have further questions regarding this matter, please ask your Primary Care Provider. Return the the emergency department immediately if symptoms worsen or change. If you have any questions regarding medications, ask your pharmacist or us before you leave. If any adverse reactions, occur while taking your medications, discontinue the treatment and return to the emergency department immediately. If any new or worsening symptoms, uncontrolled fevers, or other unexplained symptoms occur, return to the emergency department immediately. Take your medications as directed, and complete the entire course of treatment. LB CHRISTOPHER PA-C Dec 20, 2016 22:07
== END 2016-12-20 21:00 | disposition home or self-care (01) ==
LOC: FTE 16:08
DX: N30.00 Acute cystitis without hematuria (principal); D64.9 Anemia, unspecified
CPT/HCPCS: 36415; 74176; 80053; 81001; 83690; 85025; 85610; 85730; 96361; 96374; 96375; J1885; J2270; J2405; J7030; Z7502

== ENCOUNTER 2017-08-10 11:50 | Emergency (ER) | END 2017-08-10 15:12 | disposition home or self-care (01) ==

== ENCOUNTER 2017-12-06 16:11 | Emergency (ER) | END 2017-12-06 18:54 | disposition home or self-care (01) ==

== ENCOUNTER 2018-06-27 12:40 | Emergency (ER) | payer OTHER ==
[~2018-06-27] VITALS: Ht 172.7 cm; Wt 138.5 kg
[~2018-06-27 12:40] MED LIST changes: +CEPH-443 PO; +DOCU-144 PO; +FER325 PO; +IBUP-1542 PO; +SODI126M NASAL
[2018-06-27 12:45] VITALS: Ht 172.7 cm; Wt 138.5 kg
[2018-06-27] MEDS ORDERED: IBUPROFEN 800 MG TAB PO ONE (16:00)
--- NOTE | 2018-06-27 16:24 | ERD ---
ER Documentation Chief Complaint Chief Complaint rt groin pain x 3 days radiating to rt thigh HPI 23-year-old female who presents to the emergency room complaining of right hip pain. She states approximately 3 days of pain to the right hip and ASIS that is radiating to the lateral aspect of the leg just above the knee. The pain is tingling and radiating and sharp. She denies any abdominal pain, fevers or chills. She does describe her prior history of ovarian cyst but states this feels different. No falls or injuries fevers or chills. ROS All systems reviewed and are negative except as per history of present illness. Medications Home Meds Active Scripts Ibuprofen* (Motrin*) 800 Mg Tab, 800 MG PO Q6H PRN for PAIN AND OR ELEVATED TEMP, #30 TAB Prov:TRICE CORTES MD 06/27/18 Ibuprofen* (Motrin*) 600 Mg Tab, 600 MG PO Q6, #30 TAB Prov:DADA KELLEY 12/06/17 Sodium Chloride (Saline Nasal Mist) 126 Ml Mist, 2 SPRAY NASAL Q2H PRN for NASAL CONGESTION, #1 BOTTLE Prov:ADRYAN [employer] 08/10/17 Ibuprofen* (Motrin*) 600 Mg Tab, 600 MG PO Q6H PRN for PAIN AND OR ELEVATED TEM P, #30 TAB Prov:ADRYAN [employer] 08/10/17 Docusate Sodium* (Colace*) 100 Mg Capsule, 100 MG PO TID, #30 CAP Prov:LB CHRISTOPHER PA-C 12/20/16 Ferrous Sulfate* (Ferrous Sulfate*) 325 Mg Tabec, 325 MG PO TID, #60 TAB Prov:LB CHRISTOPHER PA-C 12/20/16 Cephalexin* (Keflex*) 500 Mg Capsule, 500 MG PO TID for 7 Days, #21 CAP Prov:LB CHRISTOPHER PA-C 12/20/16 Reported Medications Ferrous Gluconate (Iron) 1 Tab Tablet, 1 TAB PO DAILY 06/20/14 Allergies Allergies: Coded Allergies: No Known Allergy (Unverified , 12/08/16) PMhx/Soc History of Surgery: Yes (12/08: L ovarian cyst removal) Anesthesia Reaction: No Hx Neurological Disorder: No Hx Respiratory Disorders: No Hx Cardiac Disorders: No Hx Psychiatric Problems: No Hx Miscellaneous Medical Probl: No Hx Alcohol Use: No Hx Substance Use: No Hx Tobacco Use: No Smoking Status: Never smoker FmHx Family History: No diabetes Physical Exam Vitals Vital Signs Date Temp Pulse Resp B/P (MAP) Pulse Ox O2 O2 Flow FiO2 Time Delivery Rate 06/27/18 98.6 89 16 147/65 100 12:45 (92) Physical Exam General: Well developed, well nourished, no acute distress Head: Normocephalic, atraumatic. Eyes: Pupils equally reactive, EOM intact ENT: Moist mucous membranes Neck: Supple, no lymphadenopathy Respiratory: Lungs clear bilaterally, no distress Cardiovascular: RRR, no murmurs, rubs, or gallops Abdominal: Soft, non-tender, non-distended, no peritoneal signs, no tenderness to McBurney's point : Deferred MSK: Soft tissue tenderness located to the right hip along the lateral hip flexor insertion points. Pain is exacerbated with internal rotation and stressing these insertion points. The patient has a negative straight leg raise, no bony abnormalities noted to the femur knee hip or ankle. Good capillary refill. The hip joint has full active and passive range of motion without warmth or tenderness Neurologic: Alert and oriented, moving all extremities, normal speech, no focal weakness, no cerebellar signs Skin: No rash Psych: Normal mood Results 24 hrs Laboratory Tests Test 06/27/18 15:52 POC Beta HCG, Qualitative NEGATIVE Current Medications Medications Dose Sig/Guerline Start Time Status Last (Trade) Ordered Route PRN Stop Time Admin Dose Reason Admin Ibuprofen 800 mg ONCE ONCE 06/27/18 DC 06/27/18 (Motrin) PO 16:00 06/27/18 15:54 16:01 Procedures/MDM EKG, MONITORS, & DIAGNOSTIC IMAGING: Ultrasound pelvis: IMPRESSION: Unremarkable pelvic ultrasound. LAB INTERPRETATION: I reviewed the laboratory testing and it shows no evidence of acute process MEDICAL DECISION MAKING: The patient presents with right hip pain rating to the lateral aspect of the leg. A broad differential exists but this is most likely musculoskeletal. Consider possible hip flexor tendinitis. Patient's body habitus could be contributing. Patient exhibits no signs or symptoms concerning for septic joint, avascular necrosis or acute hip process that would warrant x-ray imaging or laboratory testing. The patient does raise concern for prior ovarian process but her exam is not consistent with ovarian torsion. The patient prefers a pelvic ultrasound which seems reasonable. Patient has a benign abdominal exam without signs or symptoms that would be concerning for acute appendicitis or other acute intra-abdominal process. Patient will most likely benefit from range of motion exercises, PT OT, weight loss, NSAID therapy. Return precautions were discussed and understood. Consider possible piriformis syndrome or lateral cutaneous femoral nerve syndrome versus lumbar radiculopathy. Further outpatient testing may be necessary. ER COURSE: * Motrin provided, negative ECG * Pelvic ultrasound unremarkable. The patient can be safely discharged with close primary care follow-up. Rest ice elevation and range of motion exercises discussed CONSULTATION: None DISPOSITION PLAN: The patient does not have an identifiable emergent medical condition that warrants inpatient hospitalization at this time. The patient is deemed safe for discharge with outpatient follow-up. We discussed follow up with the patient's primary care doctor within 24 to 48 hours as needed. We also discussed return to the emergency room for worsening symptoms or worsening condition. Outpatient referral: None required Discharge Medications: Motrin Departure Diagnosis: Primary Impression: Strain of flexor muscle of right hip Encounter type: initial encounter Qualified Codes: S76.011A - Strain of muscle, fascia and tendon of right hip, initial encounter Condition: Stable TRICE CORTES MD Jun 27, 2018 16:24
[2018-06-27] MEDS ORDERED: IBUP800T48 PO (16:52)
[2018-06-27 17:33] VITALS: BP 152/65; PULSE 68; RESP 16
== END 2018-06-27 17:34 | disposition home or self-care (01) ==
LOC: FTE 12:40
DX: S76.011A Strain of muscle, fascia and tendon of right hip, initial encounter (principal); R10.2 Pelvic and perineal pain; X58.XXXA Exposure to other specified factors, initial encounter; Y92.9 Unspecified place or not applicable
CPT/HCPCS: 76856; 81025; Z7502; Z7610

== ENCOUNTER 2018-08-26 16:14 | Emergency (ER) | payer OTHER ==
[~2018-08-26] VITALS: Ht 172.7 cm; Wt 125.0 kg
[~2018-08-26 16:14] MED LIST changes: +IBUP800T48 PO
[2018-08-26 16:20] VITALS: Ht 172.7 cm; Wt 125.0 kg
--- NOTE | 2018-08-26 18:59 | ERD ---
ER Documentation Chief Complaint Chief Complaint pt is bib family with c/o vomiting and near syncopal episode today HPI 23-year-old female, previously healthy, presents to the emergency department, complaining of 2 days with sudden onset of diarrhea, vomiting x5 today, associated with cramping, intermittent, abdominal pain, 6/10. The patient reports subjective fever, headaches and general malaise. No history of recent traveling, no reports of suspicious food. ROS All systems reviewed and are negative except as per history of present illness. Medications Home Meds Active Scripts Ciprofloxacin Hcl* (Ciprofloxacin Hcl*) 250 Mg Tablet, 250 MG PO BID for 5 Days, #10 TAB Prov:CHRISTIANO PRECIADO MD 08/26/18 Hydrocodone/Acetaminophen ([place] 5-325 Tablet) 1 Each Tablet, 1 TAB PO TID PRN for PAIN, #9 TAB Prov:CHRISTIANO PRECIADO MD 08/26/18 Ondansetron Hcl* (Zofran*) 4 Mg Tablet, 4 MG PO Q8H PRN for NAUSEA AND/OR VOMITING, #12 TAB Prov:CHRISTIANO PRECIADO MD 08/26/18 Ibuprofen* (Motrin*) 800 Mg Tab, 800 MG PO Q6H PRN for PAIN AND OR ELEVATED TEMP, #30 TAB Prov:TRICE CORTES MD 06/27/18 Ibuprofen* (Motrin*) 600 Mg Tab, 600 MG PO Q6, #30 TAB Prov:DADA KELLEY 12/06/17 Sodium Chloride (Saline Nasal Mist) 126 Ml Mist, 2 SPRAY NASAL Q2H PRN for NASAL CONGESTION, #1 BOTTLE Prov:ADRYAN VOGEL DESIGN MAKER 08/10/17 Ibuprofen* (Motrin*) 600 Mg Tab, 600 MG PO Q6H PRN for PAIN AND OR ELEVATED TEMP, #30 TAB Prov:ADRYAN VOGEL. DESIGN MAKER 08/10/17 Docusate Sodium* (Colace*) 100 Mg Capsule, 100 MG PO TID, #30 CAP Prov:LB CHRISTOPHER PA-C 12/20/16 Ferrous Sulfate* (Ferrous Sulfate*) 325 Mg Tabec, 325 MG PO TID, #60 TAB Prov:LB CHRISTOPHER PA-C 12/20/16 Cephalexin* (Keflex*) 500 Mg Capsule, 500 MG PO TID for 7 Days, #21 CAP Prov:LB CHRISTOPHER PA-C 12/20/16 Reported Medications Ferrous Gluconate (Iron) 1 Tab Tablet, 1 TAB PO DAILY 06/20/14 Allergies Allergies: Coded Allergies: No Known Allergy (Unverified , 12/08/16) PMhx/Soc History of Surgery: Yes (12/08: L ovarian cyst removal) Anesthesia Reaction: No Hx Neurological Disorder: No Hx Respiratory Disorders: No Hx Cardiac Disorders: No Hx Psychiatric Problems: No Hx Miscellaneous Medical Probl: No Hx Alcohol Use: No Hx Substance Use: No Hx Tobacco Use: No Smoking Status: Never smoker FmHx Family History: diabetes; No coronary disease Physical Exam Vitals Vital Signs Date Temp Pulse Resp B/P (MAP) Pulse Ox O2 O2 Flow FiO2 Time Delivery Rate 08/26/18 98.1 93 18 134/87 100 Room Air 22:02 (103) 08/26/18 93 20 122/72 98 Room Air 21:13 (89) 08/26/18 98.3 97 18 135/70 98 16:20 (91) Physical Exam Patient alert, oriented, vital signs stable. HEAD: Normocephalic, atraumatic. EYES: PERRLA, EOMI, Sclera and conjunctiva appear normal. NOSE: Clear and patent nostrils. EARS: Canals clear, tympanic membranes WNL. MOUTH: normal lips and tongue, no oral lesions. THROAT: Normal oropharynx, no tonsillar exudates. NECK: Supple, No lymphadenopathy. Full ROM without pain or tenderness. HEART: RRR, no rubs, murmurs, clicks or gallops. LUNGS: Clear to auscultation. ABDOMEN: Soft, diffuse tenderness to deep palpation, without masses or hepatosplenomegaly. EXTREMITIES: No edema bilaterally. BACK: Full ROM, no deformity, normal back exam NEURO: Cranial nerves grossly intact, no motor or sensory deficit SKIN: No rashes, no petechia. Result Diagram: 08/26/18192008/26/181920 Results 24 hrs Laboratory Tests Test 08/26/18 19:21 08/26/18 19:22 08/26/18 20:04 08/26/18 20:06 White Blood Count 8.5 10^3/ul Red Blood Count 5.54 10^6/ul Hemoglobin 10.8 g/dl Hematocrit 38.8 % Mean Corpuscular 70.0 fl Volume Mean Corpuscular 19.5 pg Hemoglobin Mean Corpuscular 27.8 g/dl Hemoglobin Concent Red Cell 19.2 % Distribution Width Platelet Count 408 10^3/UL Mean Platelet fl Volume Immature 0.400 % Granulocytes % Neutrophils % 64.1 % Lymphocytes % 26.8 % Monocytes % 7.6 % Eosinophils % 0.9 % Basophils % 0.2 % Nucleated Red Blood 0.0 /100WBC Cells % Immature 0.030 10^3/ul Granulocytes # Neutrophils # 5.5 10^3/ul Lymphocytes # 2.3 10^3/ul Monocytes # 0.7 10^3/ul Eosinophils # 0.1 10^3/ul Basophils # 0.0 10^3/ul Nucleated Red Blood 0.0 10^3/ul Cells # Sodium Level 142 mmol/L Potassium Level 4.1 mmol/L Chloride Level 105 mmol/L Carbon Dioxide 25 mmol/L Level Anion Gap 12 Blood Urea Nitrogen 14 mg/dl Creatinine 0.66 mg/dl Est Glomerular > 60 mL/min Filtrat Rate mL/min Glucose Level 114 mg/dl Calcium Level 10.3 mg/dl Total Bilirubin 0.3 mg/dl Direct Bilirubin 0.00 mg/dl Indirect Bilirubin 0.3 mg/dl Aspartate Amino 35 IU/L Transf (AST/SGOT) Alanine 36 IU/L Aminotransferase (A LT/SGPT) Alkaline 116 IU/L Phosphatase Total Protein 9.3 g/dl Albumin 4.8 g/dl Globulin 4.50 g/dl Albumin/Globulin 1.06 Ratio Lipase 93 U/L Urine Color YELLOW Urine Clarity TURBID Urine pH 5.0 Urine Specific 1.032 [place] Urine Ketones TRACE mg/dL Urine Nitrite NEGATIVE mg/dL Urine Bilirubin NEGATIVE mg/dL Urine Urobilinogen NEGATIVE mg/dL Urine Leukocyte NEGATIVE [place]/ul Esterase Urine Microscopic > 182 /HPF RBC Urine Microscopic 85 /HPF WBC Urine Squamous FEW /HPF Epithelial Cells Urine Bacteria FEW /HPF Urine Mucus MANY /HPF Urine Hemoglobin 3+ mg/dL Urine Glucose NEGATIVE mg/dL Urine Total Protein 1+ mg/dl Bedside Urine pH 5.5 (LAB) Bedside Urine 2+ Protein (LAB) Bedside Urine Negative Glucose (UA) Bedside Urine Negative Ketones (LAB) Bedside Urine Blood 3+ Bedside Urine Negative Nitrite (LAB) Bedside Urine Negative Leukocyte Esterase (L POC Beta HCG, NEGATIVE Qualitative Current Medications Medications Dose Sig/Guerline Start Time Status Last (Trade) Ordered Route PRN Stop Time Admin Dose Reason Admin Sodium 500 ml @ Q1H STAT 08/26/18 DC 08/26/18 Chloride 500 mls/hr IV 19:02 08/26/18 19:26 20:01 Ondansetron 4 mg ONCE STAT 08/26/18 DC 08/26/18 HCl (Zofran IV 19:02 08/26/18 19:26 Inj) 19:17 Famotidine 20 mg ONCE STAT 08/26/18 DC 08/26/18 (Pepcid Iv) IV 19:02 08/26/18 19:26 19:17 Ketorolac 15 mg ONCE STAT 08/26/18 DC 08/26/18 Tromethamine IV 21:02 08/26/18 21:15 (Toradol) 21:04 Morphine 1 mg ONCE STAT 08/26/18 DC 08/26/18 Sulfate IV 21:02 08/26/18 21:16 (morphine) 21:04 500 mg ONCE ONCE 08/26/18 DC 08/26/18 Ciprofloxacin PO 21:30 08/26/18 21:15 (Cipro) 21:31 Procedures/MDM Physical exam unremarkable, patient in no distress, hydrated, adequate oral intake, abdomen, soft, nontender, no peritoneal signs. Differential diagnosis include but not limited to: gastrointestinal infection bacterial/viral, UTI, appendicitis, colitis, food poisoning, food intolerance. Low suspicion for acute abdomen Physical examination and clinical presentation consistent most likely with gastroenteritis and urinary tract infection. During the ED course the patient remained stable, overall improvement of the symptoms after receiving treatment in the emergency department with IV fluids. Clinical impression discussed with the patient who agrees with management. The patient is stable to be discharged home, Some side effects of prescribed medications (headache, rash, nausea, vomiting, diarrhea, interactions with other medications) were reviewed. The patient requires a follow up with the primary care provider in the next 48h. If symptoms persist, worsen or new symptoms develop, then patient should return to the ED immediately. Disclaimer: Inadvertent spelling and grammatical errors are likely due to EHR/dictation software use and do not reflect on the overall quality of patient care. Also, please note that the electronic time recorded on this note does not necessarily reflect the actual time of the patient encounter. Departure Diagnosis: Primary Impression: Acute gastroenteritis Additional Impression: UTI (urinary tract infection) Condition: Stable Additional Instructions: Thank you very much for allowing us to participate in your care. Your health and safety is our top priority at [facility]. The evaluation in the emergency department has been done to rule out an acute emergency, therefore, chronic conditions like malignancy or other diseases have not been evaluated; therefore, you need to follow up with a primary care provid er in the next 48h. If symptoms persist, worsen or new symptoms develop, then patient should return to the ED immediately. Call your primary care doctor TOMORROW for an appointment during the next 2-4 days and bring all the information provided. Have prescriptions filled and follow precisely the directions on the label. If the symptoms get worse and your provider is unavailable, return to the Emergency Department immediately. CHRISTIANO PRECIADO MD August 26, 2018 18:59
[2018-08-26] MEDS ORDERED: FAMOTIDINE 20 MG INJ IV STA (19:02)
[2018-08-26] MEDS ORDERED: SOD CHLORIDE 0.9% 500 ML IV STA (19:02)
[2018-08-26] MEDS ORDERED: ONDANSETRON 4 MG INJ IV STA (19:02)
[2018-08-26] MEDS ORDERED: KETOROLAC 15 MG INJ IV STA (21:02)
[2018-08-26] MEDS ORDERED: morphine 2 MG INJ IV STA (21:02)
[2018-08-26] MEDS ORDERED: CIPROFLOXACIN 500 MG TAB PO ONE (21:30)
[2018-08-26] MEDS ORDERED: HYDR-4011 PO (21:53)
[2018-08-26] MEDS ORDERED: CIPR-193 PO ×2 (21:53→22:05)
[2018-08-26] MEDS ORDERED: ONDA4TAB8 PO (21:53)
[2018-08-26 22:02] VITALS: BP 134/87; PULSE 93; RESP 18
== END 2018-08-26 22:12 | disposition home or self-care (01) ==
LOC: FTE 16:14
DX: K52.9 Noninfective gastroenteritis and colitis, unspecified (principal); N39.0 Urinary tract infection, site not specified
CPT/HCPCS: 36415; 80053; 81001; 81003; 81025; 83690; 85025; 96374; 96375; J1885; J2270; J2405; J7040; Z7502; Z7610

== ENCOUNTER 2018-10-25 20:40 | Emergency (ER) | payer OTHER ==
[~2018-10-25] VITALS: Ht 172.7 cm; Wt 136.4 kg
[~2018-10-25 20:40] MED LIST changes: +CIPR-193 PO; +HYDR-4011 PO; +ONDA4TAB8 PO
[2018-10-25 20:41] VITALS: Ht 172.7 cm; Wt 136.4 kg
--- NOTE | 2018-10-25 21:21 | ERD ---
ER Documentation Chief Complaint Chief Complaint leg cramps x2 weeks s/p starting ketogenic diet. no injury HPI This is a 23-year-old female presents emergency department with complaints of right lower extremity pain that started last week. Also stated that she has left lower extremity pain that started only today. I asked her if this is related to her keto diet because she stated on triage that this is after treated with diet. Patient stated that these are not related to regular diet. Stated that she had a keto diet 3 weeks ago and only did it for 1 week and stopped this. Patient complains of right lower back pain that radiates to right lower extremity. Denies any injury. LMP: 2 days ago. A0. Denies headache, head injury, loss of consciousness, dizziness, neck pain, neck stiffness, throat pain, difficulty swallowing, difficulty breathing lying flat, shoulder pain, chest pain, abdominal pain, nausea, vomiting, constipation, diar shravan, urinary symptoms, or possibility being , loss of bowel and bladder control, trauma, injury, falls, difficulty walking due to pain, numbness or tingling sensation, calf pain, recent travel, recent major surgery in the last 3 weeks, calf pain, recent long travel, recent exposure to any illness, recent antibiotic use in the last 3 months, fever, chills, seizures. Past medical history: Denies. Surgical history: Ovarian cyst. Social: Denies smoking, use of alcoholic beverages, use of illegal drugs. ROS All systems reviewed and are negative except as per history of present illness. Medications Home Meds Active Scripts Cyclobenzaprine Hcl* (Cyclobenzaprine Hcl*) 10 Mg Tablet, 10 MG PO TID PRN for MUSCLE SPASMS, #15 TAB Prov:ALFRED DIA 10/25/18 Ibuprofen* (Motrin*) 800 Mg Tab, 800 MG PO Q6H PRN for PAIN AND OR ELEVATED TEMP, #30 TAB Prov:ALFRED DIA 10/25/18 Ciprofloxacin Hcl* (Ciprofloxacin Hcl*) 250 Mg Tablet, 250 MG PO BID for 5 Days, #10 TAB Prov:CHRISTIANO PRECIADO MD 08/26/18 Hydrocodone/Acetaminophen ([place] 5-325 Tablet) 1 Each Tablet, 1 TAB PO TID PRN for PAIN, #9 TAB Prov:CHRISTIANO PRECIADO MD 08/26/18 Ondansetron Hcl* (Zofran*) 4 Mg Tablet, 4 MG PO Q8H PRN for NAUSEA AND/OR VOMITING, #12 TAB Prov:CHRISTIANO PRECIADO MD 08/26/18 Ibuprofen* (Motrin*) 800 Mg Tab, 800 MG PO Q6H PRN for PAIN AND OR ELEVATED TEMP, #30 TAB Prov:TRICE CORTES MD 06/27/18 Ibuprofen* (Motrin*) 600 Mg Tab, 600 MG PO Q6, #30 TAB Prov:DADA KELLEY 12/06/17 Sodium Chloride (Saline Nasal Mist) 126 Ml Mist, 2 SPRAY NASAL Q2H PRN for NASAL CONGESTION, #1 BOTTLE Prov:ADRYAN VOGEL MACHINE WELT BUTTER 08/10/17 Ibuprofen* (Motrin*) 600 Mg Tab, 600 MG PO Q6H PRN for PAIN AND OR ELEVATED TEMP, #30 TAB Prov:ADRYAN VOGEL MACHINE WELT BUTTER 08/10/17 Docusate Sodium* (Colace*) 100 Mg Capsule, 100 MG PO TID, #30 CAP Prov:LB CHRISTOPHER PA-C 12/20/16 Ferrous Sulfate* (Ferrous Sulfate*) 325 Mg Tabec, 325 MG PO TID, #60 TAB Prov:LB CHRISTOPHER PA-C 12/20/16 Cephalexin* (Keflex*) 500 Mg Capsule, 500 MG PO TID for 7 Days, #21 CAP Prov:LB CHRISTOPHER PA-C 12/20/16 Reported Medications Ferrous Gluconate (Iron) 1 Tab Tablet, 1 TAB PO DAILY 06/20/14 Allergies Allergies: Coded Allergies: No Known Allergy (Unverified , 12/08/16) PMhx/Soc History of Surgery: Yes (12/08: L ovarian cyst removal) Anesthesia Reaction: No Hx Neurological Disorder: No Hx Respiratory Disorders: No Hx Cardiac Disorders: No Hx Psychiatric Problems: No Hx Miscellaneous Medical Probl: No Hx Alcohol Use: No Hx Substance Use: No Hx Tobacco Use: No Physical Exam Vitals Vital Signs Date Temp Pulse Resp B/P (MAP) Pulse Ox O2 O2 Flow FiO2 Time Delivery Rate 10/25/18 98.3 76 18 156/87 100 22:27 (110) 10/25/18 98.4 87 16 179/99 100 20:41 (125) Physical Exam Const: No acute distress Head: Atraumatic Eyes: Normal Conjunctiva ENT: Normal External Ears, Nose and Mouth. Neck: Full range of motion. No meningismus. Resp: Clear to auscultation bilaterally Cardio: Regular rate and rhythm, no murmurs Abd: Soft, non tender, non distended. Normal bowel sounds. Skin: No petechiae or rashes Back: No midline or flank tenderness. No CVA tenderness. No saddle anesth esia. Ext: No cyanosis, or edema. Positive right straight leg test. Positive right cross straight leg test. Negative left straight leg test. Negative left cross straight leg test. No calf tenderness bilaterally. Bilateral knees are symmetrical. Bilateral hips are stable and unremarkable. Bilateral ankle is unremarkable. Capillary refills of her lower extremities are less than 2 seconds. No neurovascular deficit. Neur: Awake and alert. No neurological deficits. Psych: Normal Mood and Affect Results 24 hrs Laboratory Tests Test 10/25/18 21:40 10/25/18 21:51 Urine Color YELLOW Urine Clarity CLEAR Urine pH 5.0 Urine Specific [place] 1.026 Urine Ketones NEGATIVE mg/dL Urine Nitrite NEGATIVE mg/dL Urine Bilirubin NEGATIVE mg/dL Urine Urobilinogen NEGATIVE mg/dL Urine Leukocyte Esterase NEGATIVE [place]/ul Urine Hemoglobin NEGATIVE mg/dL Urine Glucose NEGATIVE mg/dL Urine Total Protein NEGATIVE mg/dl POC Beta HCG, Qualitative NEGATIVE Current Medications Medications Dose Sig/Guerline Start Time Status Last (Trade) Ordered Route PRN Stop Time Admin Dose Reason Admin Ketorolac 60 mg ONCE STAT 10/25/18 DC Tromethamine IM 21:23 10/25/18 (Toradol) 21:27 1 tab ONCE ONCE 10/25/18 DC 10/25/18 Acetaminophen PO 21:30 10/25/18 21:36 / 21:31 Hydrocodone Bitart ([place] ()) Procedures/MDM Diagnostic tests: POC urine : Negative. Urinalysis: Reviewed. Treatment: [place] p.o. Re-evaluation: Denies chest pain, back pain, abdominal pain, pelvic pain, calf pain. No saddle anesthesia. No neurovascular deficits. No neurological deficits. Differential diagnosis I have low suspicion for rhabdomyolysis, kidney failure, DVT, cauda equina syndrome, fractures, compartment syndrome. Final diagnosis: Sciatica. Prescription: Flexeril. Motrin. Follow-up with PCP in the next 24-48 hours. Come back here in the emergency department for any new symptoms or any worsening symptoms. All questions and concerns were answered. Patient and family members verbalized understanding and agreed with plan of care. Hemodynamically stable on discharge. Departure Diagnosis: Primary Impression: Sciatica Condition: Stable Additional Instructions: Follow-up with PCP in the next 24-48 hours. Come back here in the emergency department for any new symptoms or any worsening symptoms. ALFRED DIA Oct 25, 2018 21:21
[2018-10-25] MEDS ORDERED: KETOROLAC 60 MG INJ IM STA (21:23)
[2018-10-25] MEDS ORDERED: HYDROCODONE/APAP (10/325) TAB PO ONE (21:30)
[2018-10-25] MEDS ORDERED: IBUP800T48 PO (22:16)
[2018-10-25] MEDS ORDERED: CYCL10TA7 PO (22:16)
[2018-10-25 22:27] VITALS: BP 156/87; PULSE 76; RESP 18
== END 2018-10-25 22:27 | disposition home or self-care (01) ==
LOC: FTE 20:40
DX: M54.31 Sciatica, right side (principal)
CPT/HCPCS: 81003; 81025; Z7502; Z7610; 99283

== ENCOUNTER 2018-12-08 05:56 | Emergency (ER) | payer OTHER ==
[~2018-12-08] VITALS: Ht 172.7 cm; Wt 130.6 kg
[~2018-12-08 05:56] MED LIST changes: +CYCL10TA7 PO; +MED4DP PO; +NAPR-985 PO
[2018-12-08 05:59] VITALS: BP 148/96; PULSE 73; RESP 17; Ht 172.7 cm; Wt 130.6 kg
[2018-12-08] MEDS ORDERED: KETOROLAC 60 MG INJ IM STA (06:20)
[2018-12-08] MEDS ORDERED: DIAZEPAM 5 MG TAB PO ONE (06:30)
[2018-12-08] MEDS ORDERED: DEXAMETHASONE 10 MG/ML 1 ML INJ IM ONE (06:30)
--- NOTE | 2018-12-08 07:47 | ERD ---
ER Documentation Chief Complaint Chief Complaint Right leg pain x 3 months,pelvic pain x 3 days getting worse,h/o sciatica HPI 23-year-old female presenting with right-sided leg pain. She states she has a history of sciatica and this pain is been persistent and continual. She took Tylenol Excedrin and ibuprofen with no alleviation of her symptoms. She has no changes in urination or bowel movement. Her pain is worse with movement. Denies any recent falls or injuries. Denies medical problems. NKDA. Surgical history is ovarian cyst removal. Social history denies ROS All systems reviewed and are negative except as per history of present illness. Medications Home Meds Active Scripts Cyclobenzaprine Hcl* (Cyclobenzaprine Hcl*) 10 Mg Tablet, 10 MG PO TID, #15 TAB Prov:NAHID CUMMINS PA-C 12/08/18 Methylprednisolone* (Medrol* DOSE PACK) 4 Mg/Dose-Pack Tab.ds.pk, 4 MG PO . DIRECTED, #30 PACKET Prov:NAHID CUMMINS PA-C 12/08/18 Naproxen* (Naprosyn*) 500 Mg Tablet, 500 MG PO BID PRN for PAIN AND/OR INFLAMMATION, #30 TAB Prov:NAHID CUMMINS PA-C 12/08/18 Hydrocodone/Acetaminophen ([place] 5-325 Tablet) 1 Each Tablet, 1 TAB PO Q6H PRN for PAIN, #7 TAB Prov:NAHID CUMMINS PA-C 12/08/18 Cyclobenzaprine Hcl* (Cyclobenzaprine Hcl*) 10 Mg Tablet, 10 MG PO TID PRN for MUSCLE SPASMS, #15 TAB Prov:ALFRED DIA 10/25/18 Ibuprofen* (Motrin*) 800 Mg Tab, 800 MG PO Q6H PRN for PAIN AND OR ELEVATED TEMP, #30 TAB Prov:ALFRED DIA 10/25/18 Ciprofloxacin Hcl* (Ciprofloxacin Hcl*) 250 Mg Tablet, 250 MG PO BID for 5 Days, #10 TAB Prov:CHRISTIANO PRECIADO MD 08/26/18 Hydrocodone/Acetaminophen ([place] 5-325 Tablet) 1 Each Tablet, 1 TAB PO TID PRN for PAIN, #9 TAB Prov:CHRISTIANO PRECIADO MD 08/26/18 Ondansetron Hcl* (Zofran*) 4 Mg Tablet, 4 MG PO Q8H PRN for NAUSEA AND/OR VOMITING, #12 TAB Prov:CHRISTIANO PRECIADO MD 08/26/18 Ibuprofen* (Motrin*) 800 Mg Tab, 800 MG PO Q6H PRN for PAIN AND OR ELEVATED TEMP, #30 TAB Prov:TRICE CORTES MD 06/27/18 Ibuprofen* (Motrin*) 600 Mg Tab, 600 MG PO Q6, #30 TAB Prov:DADA KELLEY 12/06/17 Sodium Chloride (Saline Nasal Mist) 126 Ml Mist, 2 SPRAY NASAL Q2H PRN for NASAL CONGESTION, #1 BOTTLE Prov:ADRYAN VOGEL EXTRUSION OPERATOR 08/10/17 Ibuprofen* (Motrin*) 600 Mg Tab, 600 MG PO Q6H PRN for PAIN AND OR ELEVATED TEMP , #30 TAB Prov:ADRYAN VOGEL EXTRUSION OPERATOR 08/10/17 Docusate Sodium* (Colace*) 100 Mg Capsule, 100 MG PO TID, #30 CAP Prov:LB CHRISTOPHER PA-C 12/20/16 Ferrous Sulfate* (Ferrous Sulfate*) 325 Mg Tabec, 325 MG PO TID, #60 TAB Prov:LB CHRISTOPHER PA-C 12/20/16 Cephalexin* (Keflex*) 500 Mg Capsule, 500 MG PO TID for 7 Days, #21 CAP Prov:LB CHRISTOPHER PA-C 12/20/16 Reported Medications Ferrous Gluconate (Iron) 1 Tab Tablet, 1 TAB PO DAILY 06/20/14 Allergies Allergies: Coded Allergies: No Known Allergy (Unverified , 12/08/16) PMhx/Soc History of Surgery: Yes (12/08: L ovarian cyst removal) Anesthesia Reaction: No Hx Neurological Disorder: No Hx Respiratory Disorders: No Hx Cardiac Disorders: No Hx Psychiatric Problems: No Hx Miscellaneous Medical Probl: No Hx Alcohol Use: No Hx Substance Use: No Hx Tobacco Use: No FmHx Family History: No diabetes, No coronary disease, No other Physical Exam Vitals Vital Signs Date Temp Pulse Resp B/P (MAP) Pulse Ox O2 O2 Flow FiO2 Time Delivery Rate 12/08/18 97.6 73 17 148/96 99 05:59 (113) Physical Exam GENERAL: The patient is well-appearing, well-nourished, in no acute distress CHEST: Clear to auscultation bilaterally. There are no rales, wheezes or rhonchi. HEART: Regular rate and rhythm. No murmurs, clicks, rubs or gallops. BACK: Tender to palpation over right buttocks extending down the leg with no deformity. EXTREMITIES: Equal pulses bilaterally. There is no peripheral clubbing, cyanosi s or edema. No focal swelling or erythema. Full range of motion. Grossly neurovascularly intact. NEUROLOGIC: Alert and oriented. Cranial nerves II through XII intact. Motor strength in all 4 extremities with 5 out of 5 strength. Sensation grossly int act. Normal speech and gait. Babinski negative. Results 24 hrs Laboratory Tests Test 12/08/18 06:32 12/08/18 06:33 Bedside Urine pH (LAB) 5.5 Bedside Urine Protein (LAB) 2+ Bedside Urine Glucose (UA) Negative Bedside Urine Ketones (LAB) Negative Bedside Urine Blood 3+ Bedside Urine Nitrite (LAB) Negative Bedside Urine Leukocyte Esterase (L Negative POC Beta HCG, Qualitative NEGATIVE Current Medications Medications Dose Sig/Guerline Start Time Status Last (Trade) Ordered Route PRN Stop Time Admin Dose Reason Admin Ketorolac 60 mg ONCE STAT 12/08/18 DC 12/08/18 Tromethamine IM 06:20 06:36 (Toradol) 12/08/18 06:22 10 mg ONCE ONCE 12/08/18 DC 12/08/18 Dexamethasone IM 06:30 06:35 (Decadron) 12/08/18 06:31 Diazepam 5 mg ONCE ONCE 12/08/18 DC 12/08/18 (Valium) PO 06:30 06:35 12/08/18 06:31 Procedures/MDM ER course: Valium Toradol and Decadron given in ED. Urinalysis shows 3+ blood the patient states she is currently menstruating. MDM: 23-year-old male presenting with back pain. I have low suspicion for acute fracture dislocation. I have low suspicion for tendon or ligament injury. I have low suspicion for acute abdominal emergency or pain radiating to the back. Patient has symptoms associated with back pain and sciatica. Patient will be discharged with supportive medications. I do not feel blood work or further imaging is indicated. All questions answered at discharge Departure Diagnosis: Primary Impression: Sciatica Condition: Stable Patient Instructions: Back Pain W/ Sciatica Referrals: [facility] YOU HAVE RECEIVED A MEDICAL SCREENING EXAM AND THE RESULTS INDICATE THAT YOU DO NOT HAVE A CONDITION THAT REQUIRES URGENT TREATMENT IN THE EMERGENCY DEPARTMENT. FURTHER EVALUATION AND TREATMENT OF YOUR CONDITION CAN WAIT UNTIL YOU ARE SEEN IN YOUR DOCTORS OFFICE WITHIN THE NEXT 1-2 DAYS. IT IS YOUR RESPONSIBILITY TO MAKE AN APPOINTMENT FOR FOLOW-UP CARE. IF YOU HAVE A PRIMARY DOCTOR --you should call your primary doctor and schedule an appointment IF YOU DO NOT HAVE A PRIMARY DOCTOR YOU CAN CALL OUR PHYSICIAN REFERRAL HOTLINE AT IF YOU CAN NOT AFFORD TO SEE A PHYSICIAN YOU CAN CHOSE FROM THE FOLLOWING [facility] CLINICS [facility] [address] [facility]. [facility] [address] [facility] [facility] [address] [facility] [address] [facility] [address] [facility] [facility] [address] Additional Instructions: FOLLOW UP WITH YOUR PRIMARY CARE PHYSICIAN TOMORROW.Return to this facility if you are not improving as expected. NAHID CUMMINS PA-C Dec 08, 2018 07:47
== END 2018-12-08 07:09 | disposition home or self-care (01) ==
LOC: FTE 05:56
DX: M54.31 Sciatica, right side (principal)
CPT/HCPCS: 81003; 81025; 96372; J1100; J1885; Z7502; Z7610